=== PATIENT | male | born 1965 | race Caucasian/White ===

== ENCOUNTER 2022-06-23 10:09 | Day surgery (SDC) | payer OTHER ==
[2022-06-20 12:49] VITALS: BMI 29.4
[2022-06-23] MEDS ORDERED: MIDAZOLAM HCL 2 MG/2 ML SINGLE DOSE VIAL ONE (10:26)
[2022-06-23] MEDS ORDERED: LIDOCAINE HCL/PF 2% SDV 5ML VIAL ONE (10:27)
[2022-06-23] MEDS ORDERED: PROPOFOL 40 ML ONE (10:27)
[2022-06-23] MEDS ORDERED: BUPIVACAINE HCL/PF 2.5 MG/ML - 30 ML VIAL IJ ONE (10:32)
[2022-06-23] MEDS ORDERED: ROPIVACAINE HCL 0.5% 30ML VIAL ONE (11:05)
[2022-06-23] MEDS ORDERED: SODIUM CHLORIDE 0.9% P/F 10 ML VIAL IJ ONE (11:43)
[2022-06-23] MEDS ORDERED: ceFAZolin SODIUM 1 GM VIAL ONE ×3 (11:43→16:56)
[2022-06-23] MEDS ORDERED: DEXAMETHASONE SOD PHOSPHATE 4 MG/1 ML VIAL ONE ×2 (12:00→14:35)
[2022-06-23] MEDS ORDERED: ONDANSETRON 4 MG/2 ML VIAL ONE ×2 (12:00→14:35)
[2022-06-23] MEDS ORDERED: TRANEXAMIC ACID 1000 MG/10 ML VIAL ONE ×2 (12:32→12:33)
[2022-06-23] MEDS ORDERED: LABETALOL HCL 5 MG/1 ML (100MG/20 ML VIAL) ONE (12:32)
[2022-06-23] MEDS ORDERED: PROPOFOL 20 ML ONE (12:47)
[2022-06-23] MEDS ORDERED: GUM MASTIC/STORAX/MSAL/ALCOHOL 1 DRP DROPSBTL MC ONE (17:19)
[2022-06-23] MEDS ORDERED: KETOROLAC TROMETHAMINE 30 MG/1 ML VIAL ONE (17:32)
[2022-06-23] MEDS ORDERED: ACETAMINOPHEN 1000 MG/100 ML BAG IVPB ONE (18:09)
[2022-06-23] MEDS ORDERED: oxyCODONE HCL 5 MG TABLET PO PRN ×2 (18:09)
[2022-06-23] MEDS ORDERED: ONDANSETRON 4 MG/2 ML VIAL IVPUSH PRN (18:11)
[2022-06-23] MEDS ORDERED: LACTATED RINGERS SOLUTION 1,000 ML IV SCH (18:15)
[2022-06-23 19:22] VITALS: TEMP 98.2
[2022-06-23 19:50] VITALS: RESP 20
[2022-06-23 19:52] VITALS: BP 142/82; PULSE 94
== END 2022-06-23 19:52 | disposition home or self-care (01) ==
LOC: FASU 10:09
PROVIDERS: ATTEND Orthopaedic Surgery Sports Medicine
PROC: 0LS34ZZ Reposition Right Upper Arm Tendon, Percutaneous Endoscopic Approach (ICD-10-PCS; principal; 2022-06-23 12:13)
PROC: 0LQ14ZZ Repair Right Shoulder Tendon, Percutaneous Endoscopic Approach (ICD-10-PCS; 2022-06-23 12:13)
PROC: 0PBK0ZZ Excision of Right Ulna, Open Approach (ICD-10-PCS; 2022-06-23 12:13)
PROC: 0LQ50ZZ Repair Right Lower Arm and Wrist Tendon, Open Approach (ICD-10-PCS; 2022-06-23 12:13)
DX: M75.121 Complete rotator cuff tear or rupture of right shoulder, not specified as traumatic (principal); M70.21 Olecranon bursitis, right elbow; M66.822 Spontaneous rupture of other tendons, left upper arm; M75.21 Bicipital tendinitis, right shoulder
CPT/HCPCS: 88304-TC; 94760; C1713

== ENCOUNTER 2023-06-08 06:25 | Day surgery (SDC) | payer OTHER ==
[2023-06-06 16:36] VITALS: BMI 30.4
[2023-06-08] MEDS ORDERED: DEXAMETHASONE SOD PHOSPHATE 4 MG/1 ML VIAL ONE (07:27)
[2023-06-08] MEDS ORDERED: LIDOCAINE HCL/PF 2% SDV 5ML VIAL ONE (07:27)
[2023-06-08] MEDS ORDERED: ONDANSETRON 4 MG/2 ML VIAL ONE (07:27)
[2023-06-08] MEDS ORDERED: PROPOFOL 40 ML ONE (07:27)
[2023-06-08] MEDS ORDERED: ceFAZolin SODIUM 1 GM VIAL ONE (07:27)
[2023-06-08] MEDS ORDERED: MIDAZOLAM HCL 2 MG/2 ML SINGLE DOSE VIAL ONE ×3 (07:28→11:02)
[2023-06-08] MEDS ORDERED: EPINEPHrine 1:1,000 1,000 MCG/ML ML ONE (07:39)
[2023-06-08] MEDS ORDERED: LIDOCAINE 1% P/F 10 MG/ML VIAL ONE (08:18)
[2023-06-08] MEDS ORDERED: ROPIVACAINE HCL 0.5% 30ML VIAL ONE ×3 (08:19→11:12)
[2023-06-08] MEDS ORDERED: ONDANSETRON 4 MG/2 ML VIAL IVPUSH PRN (08:34)
[2023-06-08] MEDS ORDERED: oxyCODONE HCL 5 MG TABLET PO PRN ×2 (08:34)
[2023-06-08] MEDS ORDERED: LACTATED RINGERS SOLUTION 1,000 ML IV SCH (08:45)
[2023-06-08] MEDS ORDERED: PROPOFOL 20 ML ONE ×3 (12:49→13:01)
[2023-06-08] MEDS ORDERED: ROCURONIUM BROMIDE 50 MG/5 ML SYRINGE ONE ×2 (13:08→13:16)
[2023-06-08] MEDS ORDERED: KETOROLAC TROMETHAMINE 30 MG/1 ML VIAL IVPUSH PRN (15:17)
[2023-06-08] MEDS ORDERED: ACETAMINOPHEN 1000 MG/100 ML BAG IVPB PRN (15:18)
[2023-06-08] MEDS ORDERED: ACETAMINOPHEN INJECTION 100 ML IVPB ONE (15:25)
[2023-06-08] MEDS ORDERED: KETOROLAC TROMETHAMINE 30 MG/1 ML VIAL ONE (16:29)
[2023-06-08 17:04] VITALS: RESP 20; TEMP 97.2
[2023-06-08 17:28] VITALS: BP 155/60; PULSE 94
== END 2023-06-08 17:00 | disposition home or self-care (01) ==
LOC: FASU 06:25
PROVIDERS: ATTEND Orthopaedic Surgery Sports Medicine
PROC: 0RNK4ZZ Release Left Shoulder Joint, Percutaneous Endoscopic Approach (ICD-10-PCS; principal; 2023-06-08 13:26)
DX: M75.112 Incomplete rotator cuff tear or rupture of left shoulder, not specified as traumatic (principal); M19.012 Primary osteoarthritis, left shoulder; M75.42 Impingement syndrome of left shoulder; M65.812 Other synovitis and tenosynovitis, left shoulder
CPT/HCPCS: 88305-TC; 94760; C1713